=== PATIENT | female | born 1970 | race Caucasian/White ===

== ENCOUNTER 2023-10-29 12:29 | Emergency (ER) | payer OTHER, SELFPAY ==
[2023-10-29 12:58] VITALS: BP 143/81; PULSE 75; RESP 18; TEMP 35.9; O2SAT 97; BMI 34.6
--- NOTE | 2023-10-29 13:15 | ED_ITS ---
HPI - General Adult General Date Seen: 10/29/23 Chief complaint: Unspecified Complaint, Adult Stated complaint: Low NA Time Seen by Provider: 10/29/23 13:13 History of Present Illness HPI narrative: This is a 53-year-old female who is sent to the ER today from the [facility] for low sodium. She reports that she had labs drawn 2 days ago in the [facility] clinic in sodium was 2028 and chloride was 89. Repeat labs today showed sodium is down slightly to 126. She was sent to the ER \ According to records from [facility] she has a past medical history including hypothyroidism, type 2 diabetes, vitamin-D deficiency, allergic rhinitis, depression, anxiety, sleep apnea, Medication list through [facility] includes: Duloxetine Trazodone Trileptal Rosuvastatin Hydrochlorothiazide Synthroid Olmesartan Kalenunjaro Patient was started on [facility] for her diabetes about a month ago. She was in to her primary clinic on Thursday for a previously scheduled lab check after starting him on jar 0. She had labs drawn Thursday. That evening she began to f eel little bit off. She has been a little bit dizzy. She said mild headache. She has had some nausea and queasiness. No vomiting. No diarrhea. No fever. No abdominal pain. No cough. She just has been feeling little bit run down for the past couple of days. Her labs came back the following day on Thursday. She was called by her doctor's office and told come back in for a recheck today. Recheck sodium today was down by 3 point down to 126. Her doctor sent her over here. The patient endorses that her doctor suspects that the low sodium might be triggered by the hydrochlorothiazide. Related Data Home Medications Medication Instructions Recorded Confirmed duloxetine 60 mg capsule,delayed 120 mg PO DAILY 10/29/23 10/29/23 release hydrochlorothiazide 25 mg tablet 25 mg PO DAILY 10/29/23 10/29/23 levothyroxine 88 mcg tablet 88 mcg PO DAILY 10/29/23 10/29/23 olmesartan 20 mg tablet 20 mg PO BID 10/29/23 10/29/23 oxcarbazepine 300 mg tablet mg PO 10/29/23 rosuvastatin 10 mg tablet 10 mg PO QPM 10/29/23 10/29/23 tirzepatide 2.5 mg/0.5 mL 2.5 mg subcut 10/29/23 subcutaneous pen injector (Mounjaro) tirzepatide 5 mg/0.5 mL 5 mg subcut 10/29/23 subcutaneous pen injector (Mounjaro) trazodone 50 mg tablet 50 - 100 mg PO QPM 10/29/23 10/29/23 Allergies Allergy/AdvReac Type Severity Reaction Status Date / Time No Known Drug Allergies Allergy Verified 10/29/23 13:05 [facility] Social History Smoking Status: Never smoker Non-prescribed substance use: denies use Exam Narrative: Exam Narrative: Constitutional: Appears well-developed and well-nourished. Alert. Conversant. Non toxic. Wearing sunglasses due to photophobia from headache HENT: Head: Atraumatic. No depressed skull fracture, Raccoon Eyes, Beverly's sign, or hemotympanum. Face normal. TMs normal Nose: Nose normal. Mouth/Throat: Oral mucosa is clear and moist. no trismus. Pharynx normal. Tonsils symmetric. No tonsillar enlargement, erythema, or exudate. Eyes: Conjunctivae normal. EOM normal. Pupils equal, round, and reactive to light. No scleral icterus. Neck: Normal range of motion. Neck supple. No tracheal deviation present. Cardiovascular: Normal rate, regular rhythm. No gallop. No friction rub. No m urmur heard. Symmetric radial artery pulses Pulmonary/Chest: Effort normal. No stridor. No respiratory distress. No wheezes. No rales. No rhonchi . No tenderness. Abdominal: Soft. Bowel sounds normal. No distension. No mass. No tenderness. No rebound. No guarding. No CVA 10 Musculoskeletal: RUE: Normal range of motion. No tenderness. No deformity LUE: Normal range of motion. No tenderness. No deformity RLE: Normal range of motion. No edema. No tenderness. No deformity LLE: Normal range of motion. No edema. No tenderness. No deformity Lymph: No cervical adenopathy. Neurological: Mental status normal. Attention normal. Alert and oriented x3. GCS 15. Memory normal. Speech fluent. Cognition normal. Cranial Nerves intact II-XII except I did not formally test gag or visual acuity. EOMI. Palate elevates symmetrically and tongue protrudes in the midline. Strength: 5/5 trapezius on the right and left 5/5 deltoid on the right and left 5/5 biceps on the right and left 5/5 triceps on the right and left 5/5 cpr ambulance driver on the right and left 5/5 thumb opposition on the right and le ft 5/5 finger abduction on the right and le ft 5/5 hip flexors (L3) on the right and le ft 5/5 quadriceps (L4) on the right and lef t 5/5 tibialis anterior on the right and l eft 5/5 EHL (L5) on the right and left 5/5 gastrocnemius (S1) on the right and left 5/5 hamstring on the right and left Sensation intact to light touch in both upper extremities (C4-T1) Sensation intact to light touch in Both lower extremities (L4-S1). Gait normal. Skin: Skin is warm and dry. No rash noted. No pallor. Normal capillary refill. Psychiatric: Normal mood. Normal affect. Const: Vital Signs, click to edit/add: Vital Signs - 24 hr 10/29/23 12:58 10/29/23 15:34 Temperature 96.7 F L Pulse Rate [Right Pulse Oximeter] 75 78 Respiratory Rate 18 Blood Pressure [Le ft Upper Arm] 143/81 H 134/78 Pulse Oximetry 97 98 Oxygen Delivery Me thod Room Air Room Air Course Vital Signs Vital signs: Initial Vital Signs Temperature 96.7 F L 10/29/23 12:58 Temperature Source Temporal Artery Scan 10/29/23 12:58 Pulse Rate 75 10/29/23 12:58 Respiratory Rate 18 10/29/23 12:58 Blood Pressure 143/81 H 10/29/23 12:58 Blood Pressure Mean 101 10/29/23 12:58 Blood Pressure Position Sitting 10/29/23 12:58 Pulse Oximetry 97 10/29/23 12:58 Oxygen Delivery Method Room Air 10/29/23 12:58 Vital Signs Temperature 96.7 F L 10/29/23 12:58 Pulse Rate 75 10/29/23 12:58 Respiratory Rate 18 10/29/23 12:58 Blood Pressure 143/81 H 10/29/23 12:58 Pulse Oximetry 97 10/29/23 12:58 Oxygen Delivery Method Room Air 10/29/23 12:58 Temperature 96.7 F L 10/29/23 12:58 Pulse Rate 78 10/29/23 15:34 Respiratory Rate 18 10/29/23 12:58 Blood Pressure 134/78 10/29/23 15:34 Pulse Oximetry 98 10/29/23 15:34 Oxygen Delivery Method Room Air 10/29/23 15:34 Medications Administered Medications: Discontinued Medications Generic Name Dose Route Start Last Admin Trade Name Alice PRN Reason Stop Dose Admin Diphenhydramine HCl 12.5 mg 10/29/23 13:47 10/29/23 14:22 Diphenhydramine 50 Mg/Ml Inj IVP 10/29/23 13:48 12.5 mg ONCE ONE Administration Sodium Chloride 1,000 mls @ 1,000 mls/hr 10/29/23 14:00 10/29/23 14:22 0.9 % Sodium Chloride 1000 Ml IV 10/29/23 14:59 1,000 mls/hr .Q1H CARLOS Administration Ketorolac Tromethamine 15 mg 10/29/23 13:46 10/29/23 14:22 Ketorolac 15 Mg/Ml Inj IVP 10/29/23 13:47 15 mg ONCE ONE Administration Metoclopramide HCl 10 mg 10/29/23 13:46 10/29/23 14:27 Metoclopramide Hcl 5 Mg/Ml Inj IVP 10/29/23 13:47 10 mg ONCE ONE Administration Medical Decision Making MDM Narrative Medical decision making narrative: 53-year-old female referred from the [facility] to the ER today for evaluation of hyponatremia. She was incidentally found to have hyponatremia on a screening lab draw that was done in clinic on Thursday. Sodium was 129. She came back for a sodium recheck today and sodium a gone down to 126. She is having symptoms of headache, queasiness, nausea, and some dizziness. At this point to me it is unclear whether not her symptoms are actually related to her low sodium or if they are coincidental. Typically would not expect to see lot of symptoms with a sodium of 126 . Repeat sodium level here today is 125. Kidney function blood sugar normal. Patient is actually symptom medically feeling better after treatment of her headache with a migraine cocktail and a L of IV saline. She is ambulatory, alert and oriented. At this point she does not meet criteria for hospitalization for acute hyponatremia. Certainly no indication for hypertonic saline. Discussed with the patient that the cause for hyponatremia is unclear. Most likely we would be med related. Most likely medication would be hydrochlorothiazide. Consider also possible SIADH from her Trileptal. Our initial plan of care will be to have her restrict free fluids at home, discontinue hydrochlorothiazide until follow-up. Recheck her sodium level by Thursday with her clinic. If she has any worsening symptoms tomorrow or over the weekend she will return to the ER immediately to be rechecked. She is agreeable to the plan. Lab Data Labs: Lab Results 10/29/23 Range/Units 14:10 Sodium 125 L (135-149) mmol/L Potassium 4.1 (3.6-5.1) mmol/L Chloride 87 L (96-114) mmol/L Carbon Dioxide 25 (20-32) mmol/L Anion Gap 13 (7-15) mEq/L BUN 12 (7-30) mg/dL Creatinine 0.7 (0.5-1.5) mg/dL Estimated Creat Clear 91.42 Estimated GFR 104 ml/min Glucose 98 (60-115) mg/dL Calcium 9.8 (8.4-10.6) mg/dL Discharge Plan Discharge Clinical Impression: Acute hyponatremia Patient Disposition: Home, Self-Care Condition: Stable Instructions: Hyponatremia (ED) Additional Instructions: As we discussed, please come back to the ER right away if you have worsening symptoms such as worsening nausea, dizziness, confusion, headache, or any prob lems. Please stop taking hydrochlorothiazide until your recheck with your doctor and your sodium rechecked on Thursday. Please try to restrict the amount of water you drink which will help your body bring up your sodium level. Stop hydrochlorothiazide today and do not take anymore until after he recheck with your doctor. Have your sodium level rechecked by Thursday. If you cannot get into your Dr. Haque, come back to the ER for a sodium recheck. Prescriptions: No Action trazodone 50 mg tablet 50 - 100 mg PO QPM oxcarbazepine 300 mg tablet PO levothyroxine 88 mcg tablet 88 mcg PO DAILY hydrochlorothiazide 25 mg tablet 25 mg PO DAILY olmesartan 20 mg tablet 20 mg PO BID rosuvastatin 10 mg tablet 10 mg PO QPM duloxetine 60 mg capsule,delayed release(DR/EC) 120 mg PO DAILY Kalenunyenny 2.5 mg/0.5 mL pen injector 2.5 mg subcut Mounjaro 5 mg/0.5 mL pen injector 5 mg subcut Follow Up/Referrals: Eugenie Ramirez PA-C [Primary Care Provider] - Stand Alone [facility]: [facility] Info Instructions
[2023-10-29] MEDS: diphenhydrAMINE 50 MG/ML inj 12.5 MG IVP (14:22)
[2023-10-29] MEDS: KETOROLAC 15 MG/ML inj IVP (14:22)
[2023-10-29] MEDS: 0.9 % SODIUM CHLORIDE 1000 ml 1,000 ML IV (14:22)
[2023-10-29] MEDS: METOCLOPRAMIDE HCL 5 MG/ML INJ 10 MG IVP (14:27)
[2023-10-29 14:38] LABS: Chloride* 87 mmol/L (96-114)
[2023-10-29 14:39] LABS: Potassium* 4.1 mmol/L (3.6-5.1); Sodium* 125 mmol/L (135-149)
[2023-10-29 14:41] LABS: Creatinine* 0.7 mg/dL (0.5-1.5); Est. Creatinine Clearance* 91.42; Estimated Glomerular Filt Rate 104 ml/min
[2023-10-29 14:42] LABS: Anion Gap 13 mEq/L (7-15); Blood Urea Nitrogen* 12 mg/dL (7-30); Calcium* 9.8 mg/dL (8.4-10.6); Carbon Dioxide* 25 mmol/L (20-32); Glucose* 98 mg/dL (60-115)
[2023-10-29 15:34] VITALS: BP 134/78; PULSE 78; O2SAT 98
== END 2023-10-29 15:36 | disposition home or self-care (01) ==
PROVIDERS: Emergency Provider Emergency Medicine; PCP Physician Assistant Medical
DX: E87.6 Hypokalemia (principal)
CPT/HCPCS: 36415; 80048; 96374; 96375; 99283; J1200; J1885; J2765; J7030